=== PATIENT | female | born 1935 | race Caucasian/White ===

== ENCOUNTER 2022-05-26 13:49 | Observation (INO) | payer OTHER ==
--- OUTSIDE RECORDS SUMMARY | 2022-05-26 13:51 | XMS REPORT | Continuity of Care Document ---
:1935 Author Organization [facility] t Address [address] [place] [address] Care Team Providers Name Role Phone Provider, [facility] Attending Clinician Unavailable Michael Pickens Attending Clinician MICHAEL WILLIS Attending Clinician Unavailable Payers Payer Name Policy Type Policy Number Effective Date Expiration Date S ource Problems Condition Condition Condition Status Onset Resolution Last Treating Co mments Source Name Details Category Date Date Treatment Clinician Date No known No known Disease Unive rs active active ity of problems problems [facility] Allergies, Adverse Reactions, Alerts Allergy Allergy Status Severity Reaction(s) Onset Inactive Treating Comm ents Source Name Type Date Date Clinician SULFA Drug Active Unknown-Cmnt 2019-09 Univ ers (SULFONA Class 2-05 ity of MIDE 00:00: [place] ANTIBIOT 00 Medical ICS) Branch Sulfa Drug Active Unknown - 2019-09 Univers (Sulfona Allergy See comments 2-05 i ty of mide 00:00: [place] Antibiot 00 Medical ics) Branch Amoxicil Drug Active Rash 2018-09 Univers domenico Allergy 0-14 ity of 00:00: [place] [address] [facility] AMOXICIL DRUG Active Rash 2018-09 Univers DOMENICO INGREDI 0-14 ity of 00:00: [address] NO KNOWN Drug Active Univers ALLERGIE Class ity of S [facility] Social History Social Habit Start Date Stop Date Quantity Comments Source Sex Assigned At [facility] [place] Exposure to Not sure [facility] SARS-CoV-2 (event) Medica l Branch Tobacco use and 2020-08-16 2020-08-16 Never used [facility] exposure 00:00:00 00:00:[address] [facility] Smoking Status Start Date Stop Date Source Never smoker [facility] Medications Ordered Filled Start Stop Current Ordering Indication Dosage Frequency Signature Comments Components Source Medication Medication Date Date Medication? Clinician (SIG) Name Name CARVEDILOL 2019-09 Yes Take by Univ ers ORAL 2-05 mouth. ity of 14:53: [place] [address] [facility] methocarbam 2019-09 Yes [id number] 750mg Take 1 U nivers oL 750 mg 2-05 tablet by ity o f tablet 00:00: mouth 4 [place] 00 (four) Medical times [place] daily as needed for Pain (scale 1-3). oxybutynin 2019-09 Yes Univers 10 mg 24 hr 2- ity of tablet 00:00: [place] 00 [facility] Branch losartan 25 2019-0 Yes 25mg Take 25 mg Univers mg tablet 12-13 by mouth. ity o f 00:00: [place] [address] [facility] atorvastati 2018-09 2020- No 10mg Take 10 mg Univers n 10 mg 10-31 by mouth. ity of tablet 00:00: 05:59 [place] 00 :00 Medical [place] Vital Signs Vital Name Observation Time Observation Value Comments Source Systolic blood 2020-08-16 14:51:00 125 mm[Hg] Univer [facility]ity of [facility] Diastolic blood 2020-08-16 14:51:00 81 mm[Hg] Unive rsity [facility] Heart rate 2020-08-16 14:51:00 80 /min [facility] Body temperature 2020-08-16 14:51:[address] [facility] Respiratory rate 2020-08-16 14:51:00 16 /min [facility] Body height 2020-08-16 14:51:00 157.5 cm [facility] Body weight 2020-08-16 14:51:00 54.432 kg [facility] BMI 2020-08-16 14:51:00 21.95 kg/m2 [facility] Oxygen saturation in 2020-08-16 14:51:00 98 /min [facility] Arterial blood by [facility] Pulse oximetry Branch Systolic blood 2020-08-16 14:51:00 125 mm[Hg] Univer sity of [facility] Diastolic blood 2020-08-16 14:51:00 81 mm[Hg] Unive rsity [facility] Heart rate 2020-08-16 14:51:00 80 /min [facility] Body temperature 2020-08-16 14:51:[address] [facility] Respiratory rate 2020-08-16 14:51:00 16 /min [facility] Body height 2020-08-16 14:51:00 157.5 cm [facility] Body weight 2020-08-16 14:51:00 54.432 kg [facility] BMI 2020-08-16 14:51:00 21.95 kg/m2 [facility] Oxygen saturation in 2020-08-16 14:51:00 98 /min [facility] Arterial blood by [facility] Pulse oximetry Branch Procedures This patient has no known procedures. Encounters Start End Encounter Admission Attending Care Care Encounter Source Date/Time Date/Time Type Type Clinicians Facility Department ID 2020-08-16 2020-08-16 Urgent Provider, [facility] Urgent Care [facility] [id number] Univers 08:41:53 09:01:53 Care [facility] [id number] [facility] [id number] [place] as Professio [phone] N[place] dical [address] 2020-08-16 2020-08-16 Urgent Provider, [facility] [id number] 08:41:53 09:01:53 Care [facility] [id number] Care [place] [id number] Professio [phone] nal [facility] Office [address] 2020-08-16 2020-08-16 Outpatient R [facility] [id number] Univers 08:40:00 08:40:00 [facility] Results This patient has no known results.
--- NOTE | 2022-05-26 14:44 | RAD REPORT ---
EXAM DESCRIPTION: RAD - Chest Single View - 05/26/2022 2:37 pm CLINICAL HISTORY: CHEST PAIN COMPARISON: No comparisons FINDINGS: Lines: None. Lungs: No evidence of edema or pneumonia. Pleural: No significant pleural effusions or pneumothorax. Cardiac: The heart size is within normal limits. Mediastinum: Within normal limits. Bones: No acute fractures. Other: None IMPRESSION: No acute cardiopulmonary disease.
[2022-05-26 15:03] LABS: Absolute Lymphocytes (CBC) 1.3 K/uL (0.7-4.9); Hematocrit 35.2 % (36.0-45.0); Lymphocytes % 23.7 % (15.3-44.8); MCV 88.7 fL (80-100); MPV 6.9 fL (7.6-11.3); RBC Red Blood Cell Count 3.97 M/uL (3.86-4.86)
[2022-05-26 15:24] LABS: Potassium 3.6 mmol/L (3.5-5.1); Troponin High Sensitivity 6.3 pg/mL (<58.9)
[2022-05-26 15:50] LABS: SARS-CoV-2 Antigen Rapid Res Negative (Negative)
--- NOTE | 2022-05-26 16:23 | ER ---
Nurse's Notes [facility] Name: Nohemi Aviles Age: 87 yrs Sex: Female : 1935 Arrival Date: 05/26/2022 Time: 13:51 Bed 19 Private MD: Ike Mckeon Diagnosis: Chest pain, unspecified Presentation: 05/26 14:05 Chief complaint: Patient states: saw Dr. Valles today for stress test, had an abnormal tp1 ECG. Reports continuous chest pressure rated 3/10 that started over a week ago. When pain began PT stated chest pain was severe. reports nausea, vomiting, lightheadedness, headache. denies blurred vision. Dr. Valles instructed PT to be admitted for a heart cath tomorrow. Coronavirus screen: Vaccine status: Patient reports receiving the 2nd dose of the covid vaccine. Ebola Screen: Patient negative for fever greater than or equal to 101.5 degrees Fahrenheit, and additional compatible Ebola Virus Disease symptoms Patient denies exposure to infectious person. Patient denies travel to an Ebola-affected area in the 21 days before illness onset. Initial Sepsis Screen: Does the patient meet any 2 criteria? No. Patient's initial sepsis screen is negative. Does the patient have a suspected source of infection? No. Patient's initial sepsis screen is negative. Risk Assessment: Do you want to hurt yourself or someone else? Patient reports no desire to harm self or others. Onset of symptoms is unknown. 14:05 Method Of Arrival: Ambulatory tp1 14:05 Acuity: CHANTEL 3 tp1 Triage Assessment: 14:10 General: Appears in no apparent distress. comfortable, Behavior is calm, cooperative. tp1 Pain: Complains of pain in chest Pain radiates to back Pain currently is 3 out of 10 on a pain scale. Pain began about a week ago. Neuro: Nguyễn Agitation-Sedation Scale (RASS): 0 - Alert and Calm Level of Consciousness is awake, alert, obeys commands, Oriented to person, place, time, situation. Cardiovascular: Patient's skin is warm and dry. Historical: - Allergies: 14:10 Sulfa (Sulfonamide Antibiotics); tp1 14:10 Amoxicillin; tp1 - Home Meds: 14:15 atorvastatin oral [Active]; carvedilol oral [Active]; losartan oral [Active]; tp1 omeprazole Oral [Active]; Oxybutynin Chloride Oral [Active]; 14:17 estradiol vaginal tab [Active]; Vitamin D Oral [Active]; Vitamin K Sub-Q [Active]; tp1 Vitamin B-12 Oral [Active]; - PMHx: 14:10 Hypertensive disorder; Hypercholesterolemia; idiopathic cardiomyopathy; Diabetes tp1 mellitus; - PSHx: 14:10 Cholecystectomy; hysterectomy; tp1 - Immunization history:: Client reports receiving the 2nd dose of the Covid vaccine. - Social history:: Smoking status: Patient denies any tobacco usage or history of. Screenin:00 Abuse screen: Denies threats or abuse. Denies injuries from another. Nutritional jl7 screening: No deficits noted. Tuberculosis screening: No symptoms or risk factors identified. Fall Risk IV access (20 points). Total Toth Fall Scale indicates No Risk (0-24 pts). Assessment: 15:00 General: Appears in no apparent distress. uncomfortable, Behavior is calm, cooperative, jl7 appropriate for age. Pain: Denies pain. Neuro: Level of Consciousness is awake, alert, obeys commands, Oriented to person, place, time, situation. Cardiovascular: Denies chest pain, Patient's skin is warm and dry. Rhythm is sinus rhythm. Respiratory: Airway is patent Respiratory effort is even, unlabored, Respiratory pattern is regular, symmetrical, Denies shortness of breath. Derm: Skin is pink, warm \T\ dry. 16:00 Reassessment: Patient appears in no apparent distress at this time. No changes from jl7 previously documented assessment. Patient and/or family updated on plan of care and expected duration. Pain level reassessed. Patient is alert, oriented x 3, equal unlabored respirations, skin warm/dry/pink. 17:00 Reassessment: Patient appears in no apparent distress at this time. No changes from jl7 previously documented assessment. Patient and/or family updated on plan of care and expected duration. Pain level reassessed. Patient is alert, oriented x 3, equal unlabored respirations, skin warm/dry/pink. 18:00 Reassessment: Patient appears in no apparent distress at this time. No changes from jl7 previously documented assessment. Patient and/or family updated on plan of care and expected duration. Pain level reassessed. Patient is alert, oriented x 3, equal unlabored respirations, skin warm/dry/pink. Vital Signs: 14:05 BP 149 / 77; Pulse 84; Resp 16; Temp 97.7(TE); Pulse Ox 99% on R/A; Weight 58.06 kg; tp1 Height 5 ft. 1 in. (154.94 cm); 15:00 BP 123 / 75; Pulse 74; Resp 15; Pulse Ox 100% ; jl7 15:45 BP 132 / 73; Pulse 75; Resp 16; Pulse Ox 100% ; jl7 16:30 BP 132 / 73; Pulse 75; Resp 16; Pulse Ox 100% ; jl7 17:15 BP 116 / 86; Pulse 80; Resp 20; Pulse Ox 100% ; jl7 18:00 BP 112 / 86; Pulse 75; Resp 20; Pulse Ox 99% ; jl7 14:05 Body Mass Index 24.19 (58.06 kg, 154.94 cm) tp1 ED Course: 13:51 Patient arrived in ED. mr 13:51 Ike Mckeon DO is Private Physician. mr 14:10 Triage completed. tp1 14:10 Arm band placed on. tp1 14:14 Jes [facility]C [facility] kb 14:14 Adonay Myers MD is Attending Physician. kb 14:39 XRAY Chest (1 view) In Process Unspecified. EDMS 14:45 Inserted saline lock: 20 gauge in right antecubital area, using aseptic technique. kc6 Blood collected. 14:46 Basic Metabolic Panel Sent. kc6 14:46 CBC with Diff Sent. kc6 14:46 NT PRO-BNP Sent. kc6 14:46 PT-INR Sent. kc6 14:46 Troponin HS Sent. kc6 15:00 Patient has correct armband on for positive identification. Placed in gown. Bed in low jl7 position. Call light in reach. Side rails up X2. Client placed on continuous cardiac and pulse oximetry monitoring. NIBP monitoring applied. Warm blanket given. 15:00 Initial lab(s) drawn, by ED staff, sent to lab. EKG done, by ED staff, reviewed by kavita Myers MD. 15:11 SARS RAPID Sent. kc6 15:21 Alejo Hanna, LANCE is Primary Nurse. jl7 16:22 Prince Stephen MD is Hospitalizing Provider. kb 18:44 No provider procedures requiring assistance completed. Patient admitted, IV remains in jl7 place. intact, No redness/swelling at site. 23:15 Primary Nurse role handed off by Alejo Hanna RN 05/27 05:24 Livia Puri is Primary Nurse. tw5 Administered Medications: 05/26 21:40 Drug: Tylenol 500 mg Route: PO; tw5 Medication: 15:00 VIS not applicable for this client. 7 Outcome: 16:23 Decision to Hospitalize by Provider. kb 05/27 05:25 Admitted to ER Hold. Please see [facility] for further documentation. tw5 Condition: stable Instructed on the need for admit. 05:40 Patient left the ED. bb Signatures: Dispatcher [employer] EDMS Jes Nolan, ACETYLENE CUTTER-C ACETYLENE CUTTER-Lea Ortiz mr Amada Cotton, RN RN bb Alejo Hanna, RN RN Stephanie Du Livia Puri [facility] Livia Flores, RN RN tp1 Toshia Aguilar 6
--- NOTE | 2022-05-26 16:23 | EDPHYS ---
Physician Documentation [facility] [place] Name: Nohemi Aviles Age: 87 yrs Sex: Female : 1935 Arrival Date: 05/26/2022 Time: 13:51 Bed 19 Private MD: Ike Mckeon ED Physician Adonay Myers HPI: 05/26 19:46 This 87 yrs old Female presents to ER via Ambulatory with complaints of Abnormal EKG. kb 19:46 The patient or guardian reports chest pain that is located primarily in the substernal kb area. Onset: today. The pain does not radiate. Associated signs and symptoms: Pertinent positives: shortness of breath. The chest pain is described as a pressure. Duration: The patient or guardian reports a single episode, that is still ongoing, but improving. Modifying factors: The symptoms are alleviated by nothing. the symptoms are aggravated by activity. Severity of pain: At its worst the pain was moderate in the emergency department the pain has improved mildly. The patient has not experienced similar symptoms in the past. The patient has been recently seen by a physician:. Pt reports she had a stress test done by Dr Valles today that was abnormal. States she has had chest pain for a week which prompted her visit to [facility]. Was having chest pain and shortness of breath after stress test so was sent to ED for admission so [facility] could do a heart cath tomorrow. Pt reports pain has gotten better since it started . Historical: - Allergies: 14:10 Sulfa (Sulfonamide Antibiotics); tp1 14:10 Amoxicillin; tp1 - Home Meds: 14:15 atorvastatin oral [Active]; carvedilol oral [Active]; losartan oral [Active]; tp1 omeprazole Oral [Active]; Oxybutynin Chloride Oral [Active]; 14:17 estradiol vaginal tab [Active]; Vitamin D Oral [Active]; Vitamin K Sub-Q [Active]; tp1 Vitamin B-12 Oral [Active]; - PMHx: 14:10 Hypertensive disorder; Hypercholesterolemia; idiopathic cardiomyopathy; Diabetes tp1 mellitus; - PSHx: 14:10 Cholecystectomy; hysterectomy; tp1 - Immunization history:: Client reports receiving the 2nd dose of the Covid vaccine. - Social history:: Smoking status: Patient denies any tobacco usage or history of. ROS: 19:46 Constitutional: Negative for fever, chills, and weight loss. kb 19:46 Cardiovascular: Positive for chest pain. 19:46 Respiratory: Positive for shortness of breath. 19:46 All other systems are negative. Exam: 17:24 Constitutional: This is a well developed, well nourished patient who is awake, alert, kb and in no acute distress. Head/Face: Normocephalic, atraumatic. ENT: Moist Mucous membranes Chest/axilla: Normal chest wall appearance and motion. Cardiovascular: Regular rate and rhythm with a normal S1 and S2. No gallops, murmurs, or rubs. No pulse deficits. Respiratory: Respirations even and unlabored. No increased work of breathing. Talking in full sentences Abdomen/GI: Soft, non-tender. No distention Skin: Warm, dry with normal turgor. Normal color. MS/ Extremity: Pulses equal, no cyanosis. Neurovascular intact. Full, normal range of motion. Neuro: Awake and alert, GCS 15, oriented to person, place, time, and situation. Moves all extremities. Normal gait. Psych: Awake, alert, with orientation to person, place and time. Behavior, mood, and affect are within normal limits. 17:24 ECG was reviewed by the Attending Physician. Vital Signs: 14:05 BP 149 / 77; Pulse 84; Resp 16; Temp 97.7(TE); Pulse Ox 99% on R/A; Weight 58.06 kg; tp1 Height 5 ft. 1 in. (154.94 cm); 15:00 BP 123 / 75; Pulse 74; Resp 15; Pulse Ox 100% ; jl7 15:45 BP 132 / 73; Pulse 75; Resp 16; Pulse Ox 100% ; jl7 16:30 BP 132 / 73; Pulse 75; Resp 16; Pulse Ox 100% ; jl7 17:15 BP 116 / 86; Pulse 80; Resp 20; Pulse Ox 100% ; jl7 18:00 BP 112 / 86; Pulse 75; Resp 20; Pulse Ox 99% ; jl7 14:05 Body Mass Index 24.19 (58.06 kg, 154.94 cm) tp1 MDM: 14:21 Patient medically screened. kb 14:40 Physician consultation: Humza Valles MD was called at 14:30, regarding consult, kb patient's condition, awaiting callback. 16:20 Data reviewed: vital signs, nurses notes. Data interpreted: Pulse oximetry: on room air kb is 99 %. Interpretation: normal. Counseling: I had a detailed discussion with the patient and/or guardian regarding: the historical points, exam findings, and any diagnostic results supporting the discharge/admit diagnosis, lab results, radiology results, the need for further work-up and treatment in the hospital. Physician consultation: Humza Valles MD was contacted at 16:22, regarding consult, patient's condition. 16:22 Physician consultation: Prince Hailee MUJICA was contacted at 16:22, regarding admission, kb to the telemetry unit. patient's condition, and will see patient in ED. 05/26 14:15 Order name: Basic Metabolic Panel; Complete Time: 15:25 kb 05/26 14:15 Order name: CBC with Diff; Complete Time: 15:05 kb 05/26 14:15 Order name: NT PRO-BNP; Complete Time: 15:25 kb 05/26 14:15 Order name: PT-INR; Complete Time: 15:05 kb 05/26 14:15 Order name: Troponin HS; Complete Time: 15:25 kb 05/26 14:36 Order name: SARS RAPID; Complete Time: 16:00 kb 05/26 14:15 Order name: XRAY Chest (1 view); Complete Time: 14:46 kb 05/26 14:15 Order name: EKG; Complete Time: 14:15 kb 05/26 14:15 Order name: Cardiac monitoring; Complete Time: 15:11 kb 05/26 14:15 Order name: EKG - Nurse/Tech; Complete Time: 15:11 kb 05/26 22:44 Order name: Troponin High Sensitivity; Complete Time: 23:12 EDMS 05/26 22:44 Order name: Lipid Profile; Complete Time: 23:12 EDMS 05/26 22:52 Order name: Hemoglobin A1c; Complete Time: 23:12 EDMS 05/26 14:15 Order name: IV Saline Lock; Complete Time: 14:45 kb 05/26 14:15 Order name: Labs collected and sent; Complete Time: 14:46 kb 05/26 14:15 Order name: O2 Per Protocol; Complete Time: 14:46 kb 05/26 14:15 Order name: O2 Sat Monitoring; Complete Time: 14:46 kb EC:24 Rate is 66 beats/min. Rhythm is regular. QRS [place] is Normal. MO interval is normal at kb 154 msec. QRS interval is normal at 92 msec. QT interval is normal at 444 msec. Administered Medications: 21:40 Drug: Tylenol 500 mg Route: PO; tw5 Disposition: 05/27 20:33 Co-signature as Attending Physician, Adonay yMers MD. rn Disposition Summary: 05/26/22 16:23 Hospitalization Ordered Hospitalization Status: Inpatient Admission kb Provider: Prince jean Stephen Condition: Stable kb Problem: new kb Symptoms: are unchanged kb Bed/Room Type: Standard kb Location: Telemetry/MedSurg (Inpatient)(05/27/22 03:54) cg Room Assignment: [facility](05/27/22 03:54) Diagnosis - Chest pain, unspecified kb Forms: - Medication Reconciliation Form kb - SBAR form kb Signatures: Dispatcher [employer] EDMS Jes Nolan, ADRIA METAL MODEL MAKER-Adonay Montano MD MD rn Garcia, Cindy, RN RN cg Wood, Tiffany tw5 Livia Flores RN RN tp1 Corrections: (The following items were deleted from the chart) 05/26 19:19 16:23 Telemetry/MedSurg (Inpatient) kb 19:19 16:23 kb 05/27 03:54 05/26 19:19 [facility] ER HOLD cg 05/27 03:54 05/26 19:19 ERHOLD- cg cg
--- NOTE | 2022-05-26 17:06 | P.HP ---
Certification for Inpatient Patient admitted to: Observation With expected LOS: <2 Midnights Practitioner: I am a practitioner with admitting privileges, knowledge of patient current condition, hospital course, and medical plan of care. Services: Services provided to patient in accordance with Admission requirements found in Title 42 Section 412.3 of the Code of Federal Regulations Patient History Date of Service: 05/26/22 Reason for admission: abnormal stress test, chest pain History of Present Illness: 87-year-old female with a past medical history of hypertension, HLD, and type II diabetes mellitus. From cardiology office after an abnormal stress test this afternoon. The patient's has been having chest pain for the past week. First onset of chest pain started approximately 7 days ago when she woke up with the sharp chest pain radiating to the back. The pain was nonradiating and nonexertional. She actually got up to bed and vomited. She contacted her PCP and was able to be referred to a cardiology appointment today. She underwent a stress test, which was positive. Therefore, she is here to undergo coronary angiogram. Her first high-sensitivity troponin is negative. Her EKG is normal. Physical Examination - Physical Exam General: Alert, In no apparent distress, Cooperative HEENT: Atraumatic, Normocephalic Neck: Supple Respiratory: Clear to auscultation bilaterally, Normal air movement Cardiovascular: No edema, Normal pulses, Regular rate/rhythm, Normal S1 S2 Musculoskeletal: No clubbing, No swelling, No contractures Neurological: Normal speech, Sensation intact, Cranial nerves 3-12 intact - Studies Laboratory Data (last 24 hrs) 05/26/22 14:42: PT 11.0, INR 1.00 05/26/22 14:42: WBC 5.50, Hgb 12.0, Hct 35.2 L, Plt Count 285 05/26/22 14:42: Sodium 138, Potassium 3.6, BUN 17, Creatinine 1.00, Glucose 168 H Assessment and Plan - Problems (Diagnosis) (1) Abnormal stress test Current Visit: Yes Status: Acute (2) Chest pain Current Visit: Yes Status: Acute (3) Hypertension Current Visit: Yes Status: Acute (4) Hyperlipidemia Current Visit: Yes Status: Acute (5) Type 2 diabetes mellitus Current Visit: Yes Status: Acute - Plan Assessment Patient is a 87-year-old female who is presenting from her cardiol ogist office after an abnormal stress test. She has a history of hypertension, type 2 diabetes mellitus and hyperlipidemia. Her chest pain was resolved during my evaluation. She is hemodynamically stable. Work-up so far has included troponin and EKG all of which were negative. Abnormal stress test Hypertension Hyperlipidemia Type 2 diabetes mellitus Plan: Will admit under observation with telemetry Repeat troponin Follow-up with 2D echo, hemoglobin A1c and lipid panel Cardiology has been consulted for a coronary angiogram Should be n.p.o. after midnight No chemoprophylaxis as per cardiology Okay for SCDs Resume rest of her home medication when reconciled - Advance Directives Does patient have a Living Will: Yes Does patient have a Durable POA for Healthcare: Yes
[2022-05-26] MEDS ORDERED: FAMOTIDINE 20 MG TAB ONE (21:26)
[2022-05-26] MEDS ORDERED: HYDROMORPHONE HCL 2 MG/ML inj ONE (21:26)
[2022-05-26] MEDS ORDERED: PROMETHAZINE INJ 25 MG/ML AMP ONE (21:26)
[2022-05-26] MEDS ORDERED: ACETAMINOPHEN 325 MG TABLET PO PRN (21:32)
[2022-05-26] MEDS ORDERED: ACETAMINOPHEN 500 MG TAB ONE (21:49)
[2022-05-26 21:59] VITALS: BMI 24.1
[2022-05-26] MEDS ORDERED: carvediloL 12.5 MG TAB PO ONE (22:10)
[2022-05-26] MEDS ORDERED: carvediloL 6.25 MG TAB ONE (22:23)
[2022-05-26 22:44] LABS: Troponin High Sensitivity 7.8 pg/mL (<58.9)
[2022-05-27] MEDS ORDERED: PNEUMOCOCCAL VACCINE 0.5 ML IMVAC ONE (08:00)
[2022-05-27] MEDS ORDERED: NA CHLORIDE 0.9% 0 ML ONE (08:51)
[2022-05-27] MEDS ORDERED: HOME MED 1 EA UNK (Oxybutynin Chloride [Oxybutynin Chloride Er] 10 MG Tab.Er.24) PO SCH (09:00)
[2022-05-27] MEDS ORDERED: HOME MED 1 EA UNK (Omeprazole [Omeprazole] 20 MG Capsule.Dr) PO SCH (09:00)
[2022-05-27] MEDS ORDERED: LOSARTAN POTASSIUM 50 MG TABLET PO SCH (09:00)
[2022-05-27] MEDS ORDERED: PANTOPRAZOLE 40MG TABLET PO SCH (09:00)
[2022-05-27] MEDS ORDERED: carvediloL 12.5 MG TAB PO SCH (09:00)
[2022-05-27] MEDS ORDERED: OXYBUTYNIN CHLORIDE 5 MG TAB PO SCH (09:00)
[2022-05-27] MEDS ORDERED: HEPA 1000U/500MLS 2,000 UNIT/1,000 ML BAG IV ONE (09:33)
[2022-05-27] MEDS ORDERED: MIDAZOLAM HCL 2 MG/2 ML INJ ONE (09:34)
[2022-05-27] MEDS ORDERED: FENTANYL CITR 100 MCG/2 ML ONE (09:34)
[2022-05-27] MEDS ORDERED: NA CHLORIDE 0.9% 500 ML ONE (09:35)
[2022-05-27] MEDS ORDERED: NA CHLORIDE 0.9% 0 ML IV ONE (09:35)
[2022-05-27] MEDS ORDERED: ATROPINE SULF 1 MG/10 ML SYR IV ONE (09:35)
--- NOTE | 2022-05-27 10:33 | P.DS ---
Admission Date: 05/26/22 Discharge Date: 05/27/22 Disposition: ROUTINE DISCHARGE Discharge Condition: GOOD Reason for Admission: abnormal stress test, chest pain - Problems (1) Abnormal stress test Current Visit: Yes Status: Acute (2) Chest pain Current Visit: Yes Status: Acute (3) Hypertension Current Visit: Yes Status: Acute (4) Hyperlipidemia Current Visit: Yes Status: Acute (5) Type 2 diabetes mellitus Current Visit: Yes Status: Acute Brief History of Present Illness: 87-year-old female with a past medical history of hypertension, HLD, and type II diabetes mellitus. From cardiology office after an abnormal stress test this afternoon. The patient's has been having chest pain for the past week. First onset of chest pain started approximately 7 days ago when she woke up with the sharp chest pain radiating to the back. The pain was nonradiating and nonexertional. She actually got up to bed and vomited. She contacted her PCP and was able to be referred to a cardiology appointment today. She underwent a stress test, which was positive. Therefore, she is here to undergo coronary angiogram. Her first high-sensitivity troponin is negative. Her EKG is normal. Hospital Course: Meeting under observation. Her repeat troponin was negative as well. She had a coronary angiogram this morning after an abnormal stress test. No obstructive coronary disease was found. Patient has been cleared by cardiology for discharge. Vital Signs/Physical Exam: Temp Pulse Resp BP Pulse Ox 97.8 F 62 16 140/62 100 05/27/22 08:00 05/27/22 08:00 05/27/22 08:00 05/27/22 08:00 05/27/22 08:00 General: Alert, In no apparent distress, Cooperative HEENT: Atraumatic, Normocephalic Neck: Supple Respiratory: Clear to auscultation bilaterally, Normal air movement Cardiovascular: No edema, Normal pulses, Regular rate/rhythm, Normal S1 S2 Musculoskeletal: No clubbing, No swelling, No contractures, No erythema, No tenderness Neurological: Normal speech, Sensation intact, Cranial nerves 3-12 intact Laboratory Data at Discharge: WBC 5.50 K/uL (4.3-10.9) 05/26/22 14:42 Hgb 12.0 g/dL (12.0-15.0) 05/26/22 14:42 Hct 35.2 % (36.0-45.0) L 05/26/22 14:42 Plt Count 285 K/uL (152-406) 05/26/22 14:42 PT 11.0 SECONDS (9.5-12.5) 05/26/22 14:42 INR 1.00 05/26/22 14:42 Sodium 138 mmol/L (136-145) 05/26/22 14:42 Potassium 3.6 mmol/L (3.5-5.1) 05/26/22 14:42 BUN 17 mg/dL (7-18) 05/26/22 14:42 Creatinine 1.00 mg/dL (0.55-1.3) 05/26/22 14:42 Glucose 168 mg/dL (74-106) H 05/26/22 14:42 Triglycerides 183 mg/dL (<150) H 05/26/22 22:10 Cholesterol 148 mg/dL (<200) 05/26/22 22:10 HDL Cholesterol 45 mg/dL (40-60) 05/26/22 22:10 Cholesterol/HDL Ratio 3.29 05/26/22 22:10 Home Medications: RX: Atorvastatin Calcium [Lipitor*] 20 mg PO DAILY 05/26/22 RX: Carvedilol [Coreg] 12.5 mg PO BID 05/26/22 RX: Dulaglutide [Trulicity] 1.5 mg EVERY 7TH DAY 05/26/22 RX: Losartan Potassium 25 mg DAILY 05/26/22 RX: Omeprazole 20 mg DAILY 05/26/22 RX: Oxybutynin Chloride [Oxybutynin Chloride ER] 10 mg DAILY 05/26/22 Followup: Ike Mckeon DO [Primary Care Provider] -
--- NOTE | 2022-05-27 13:36 | EKG ---
Test Date: 2022-05-26 Test Time: 14:56:54 Director Critical Care: KIMBER MEASUREMENT RESULTS: Intervals: Rate: 66 KS: 154 QRSD: 92 QT: 424 QTc: 444 [place]: P: 45 KS: 154 QRS: -19 T: 19 INTERPRETIVE STATEMENTS: Normal sinus rhythm Normal ECG No previous ECG available for comparison Electronically Signed On 05-27-22 13:34:56 CDT by Bruce Nesbitt
[2022-05-27 15:49] VITALS: O2SAT 100
[2022-05-27 15:50] VITALS: BP 156/65; TEMP 97.5
[2022-05-27] MEDS ORDERED: ATORVASTATIN 20 MG TAB PO SCH (21:00)
--- NOTE | 2022-05-27 22:28 | OP ---
Date of Procedure: 05/27/2022 Surgeon: Humza Valles MD Aircraft Servicer: Ms. Tania Lopez. Indications: The patient was admitted to Dr. Stephen on 05/27/2022. Procedure In Detail: The patient was brought to the cardiac cath technician today because of unstable angina and po sitive stress test. In the cardiac cath technician, she was prepped and draped in routine sterile fashion. Given V ersed and fentanyl for sedation. She underwent left heart catheterization, selective coronary arteri ogram, and common femoral arteriogram. A 6-[place] sheath had been introduced in the right common fem oral artery successfully using the Seldinger technique and 10 cc of xylocaine. Angiography there was normal. Angio-Seal was used to close the case. A JL3.5 catheter was used to cannulate the left marilee n. She was found to have diffuse calcification by angiography with diffuse plaquing throughout the c ircumflex and LAD system, but no focal stenosis. A JR4 catheter was used to cannulate the right main . The RCA was normal. Large and dominant without any disease. Total conscious sedation was 30 daniel thomas. Complication: None. Blood Loss: 5 mL. Postoperative Diagnosis: Minimal coronary artery disease. Plan: Plan is for medical therapy. NU/PRABHU Voice ID: [id number] Report ID: [id number]
--- NOTE | 2022-05-30 19:24 | CON ---
Date of Consultation: 05/27/2022 Reason For Consultation: Abnormal stress test and chest pain. History Of Present Illness: Ms. Aviles was actually sent from my office on 05/26/2022 to the hospit ne because of persistent chest pain and abnormal stress test in the septal region. She was sent sarah zamorano for further evaluation, and they plan to have a left heart catheterization. Denied PND, orthopnea, pedal edema, palpitations, or syncope. Chest pain feels like pressure, has lasted for hours, denied any fever or chills. In the emergency room by the time she got there, she continued to have chest p ain. Allergies: HER ALLERGIES INCLUDE SULFA AND AMOXICILLIN. Review of Systems: Negative. Social History: Negative. Family History: Noncontributory. Medications: At home include Lipitor, omeprazole, and oxybutynin. Past Medical History: Includes diabetes, hypertension, hypercholesterolemia, and a history of idiopa thic cardiomyopathy. Physical Examination: Vital Signs: Her vital signs were stable. She was afebrile HEENT: Negative. Neck: Supple without any bruit, lymphadenopathy, JVD, or thyromegaly. Chest: Clear to auscultation and percussion. Cardiac: Revealed a regular rhythm and rate. No murmurs, gallops, or rubs. Abdomen: Benign. Extremities: Revealed no clubbing, cyanosis, or edema. Diagnostic Data: EKG was normal. Triglycerides 183. Hemoglobin A1c was 6.5, and glucose was 168. Chest x-ray and EKG unremarkable. Stress test positive. Impression And Plan: The patient with diabetes, hypertension, dyslipidemia, abnormal stress test, pe rsistent chest pain. We will plan for left heart catheterization to define her coronary anatomy. Madonna jaun agrees to proceed with the procedure. She understands the risk and the benefit. Continue present regimen. Hold Lovenox at least 8 hours prior to the catheterization. We will see what the catheteri zation shows before making further decision. NU/PRABHU Voice ID: [id number] Report ID: [id number]
== END 2022-05-27 14:18 | disposition home or self-care (01) ==
LOC: ER 13:49 → ERHOLD 16:26 → 4TH 05-27 05:38
PROVIDERS: ADMIT Internal Medicine; ATTEND Internal Medicine
DX: I25.110 Atherosclerotic heart disease of native coronary artery with unstable angina pectoris (principal); I10 Essential (primary) hypertension; E78.00 Pure hypercholesterolemia, unspecified; E11.9 Type 2 diabetes mellitus without complications; E78.2 Mixed hyperlipidemia; I42.9 Cardiomyopathy, unspecified; K21.9 Gastro-esophageal reflux disease without esophagitis; Z79.899 Other long term (current) drug therapy; Z88.0 Allergy status to penicillin; Z88.2 Allergy status to sulfonamides; Z90.49 Acquired absence of other specified parts of digestive tract; Z90.710 Acquired absence of both cervix and uterus; Z20.822 Contact with and (suspected) exposure to COVID-19
CPT/HCPCS: 93005; 85025; 80048; 36415; 85610; 80061; 83036; 84484 ×2; 83880; 71045; 93454; 99285; 87811; C1893; Q9966; C1760; G0269; J2550; J2250; J1170; J3010; G0378 ×4; J7040; J1644; J0583

== ENCOUNTER 2024-05-02 13:26 | Emergency (ER) | payer OTHER ==
--- OUTSIDE RECORDS SUMMARY | 2024-05-02 13:36 | XMS REPORT | Clinical Summary ---
Author Name Unknown Organization [facility] [place] Address [address] [place] [address] Care Team Providers Care Double Needle Operator Name Role Phone Ike Mckeon MD Unavailable [phone] Encounters Date Type Department Care Team Description 05/09/2023 Mobile Encounter [facility] - Hematology [address] [facility]th [place] [address] Luis Enrique Edge MD after 05/03/2023 Social History Tobacco Use Types Packs/Day Years Used Date Smoking Tobacco: Never Assessed Sex and Gender Information Value Date Recorded Sex Assigned at Not on file Gender Identity Not on file Sexual Orientation Not on file Job Start Date Occupation Industry Not on file Not on file Not on file Plan of Treatment Health Maintenance Due Date Last Done Comments Pneumococcal Vaccine: 65+ Years (1 of - PCV) 001 COVID-19 Vaccine (2022-24 season) 2023 Influenza Vaccine 05/13/2024 Care Teams Double Needle Operator Relationship Specialty Start Date End Date Ike Mckeon MD [address] [place] [address] [place] [address] PCP - External Primary Care Provider Nephrology 05/09/23
--- NOTE | 2024-05-02 14:33 | RAD REPORT ---
EXAM DESCRIPTION: CT - Head Brain Wo Cont - 05/02/2024 2:17 pm CLINICAL HISTORY: headach Headache, drowsiness COMPARISON: <Comparisons> TECHNIQUE: All CT scans are performed using dose optimization technique as appropriate and may inclu de automated exposure control or mA/KV adjustment according to patient size. FINDINGS: No intracranial hemorrhage, hydrocephalus or extra-axial fluid collection.Mild generalized brain atrophy seen.No areas of brain edema or evidence of midline shift. The paranasal sinuses and mastoids are clear. The calvarium is intact. IMPRESSION: No acute intracranial abnormality.
[2024-05-02 14:50] LABS: Absolute Eosinophils 0.1 K/uL (0-0.5); Absolute Lymphocytes (CBC) 1.4 K/uL (0.7-4.9); Absolute Monocytes 0.3 K/uL (0.1-1.3); Absolute Neutrophil 6.8 K/uL (1.8-8.0); Basophils % 0.4 % (0-1.3); Eosinophils % 1.1 % (0-4.4); Hematocrit 38.8 % (36.0-45.0); Hemoglobin 12.9 g/dL (12.0-15.0); Lymphocytes % 16.7 % (15.3-44.8); MCH 30.3 pg (27.0-35.0); MCHC 33.2 g/dL (32.0-36.0); MCV 91.1 fL (80-100); MPV 7.6 fL (7.6-11.3); Neutrophils % 78.8 % (41.7-73.7); Nucleated Red Blood Cells % 0.1 % (0-0); Platelets 245 thou/uL (152-406); RBC Red Blood Cell Count 4.26 M/uL (3.86-4.86); Red Cell Distribution Width 14.2 % (12.1-15.2)
[2024-05-02] MEDS ORDERED: DIPHENHYDRAMINE 50 MG/ML VIAL ONE (15:07)
[2024-05-02] MEDS ORDERED: NA CHLORIDE 0.9% 1,000 ML ONE (15:07)
[2024-05-02 15:09] LABS: ALT/SGPT 40 U/L (13-56); AST/SGOT 51 U/L (15-37); Albumin 3.3 g/dL (3.4-5.0); Albumin/Globulin Ratio 1.1 (1.1-1.8); Alkaline Phosphatase 54 U/L (45-117); Anion Gap 10.9 mEq/L (5.0-15.0); BUN Blood Urea Nitrogen 24 mg/dL (7-18); Bicarbonate 22 mEq/L (21-32); Bilirubin Total 0.4 mg/dL (0.2-1.0); Glomerular Filtration Rate 33 ml/min (=/>90); Glucose Level 186 mg/dL (74-106); Potassium 3.9 mEq/L (3.5-5.1); Protein, Total 6.3 g/dL (6.4-8.2); Sodium Level 139 mEq/L (136-145); Troponin High Sensitivity 9.2 pg/mL (<58.9)
[2024-05-02 15:13] LABS: Bilirubin Direct < 0.2 mg/dL (0-0.2); Bilirubin Indirect, Calculated 0.2 mg/dL (0.2-0.8)
--- NOTE | 2024-05-02 16:13 | ER ---
Nurse's Notes [facility] Name: Nohemi Aviles Age: 89 yrs Sex: Female : 1935 Arrival Date: 05/02/2024 Time: 13:26 Bed 11 Private MD: Diagnosis: Dehydration;Nausea with vomiting, unspecified Presentation: 05/02 13:54 Chief complaint: EMS states: toned out for syncopal episode. Patient was at [facility] and me1 had some blood drawn, was walking out and felt nauseated with abdominal cramping so she sat down, vomited and then she lost consciousness. No fall or injury. A\T\OX4 when EMS arrived. EMS started a 20g to right wrist. No meds given. Coronavirus screen: Vaccine status: Patient reports receiving the 2nd dose of the covid vaccine. Ebola Screen: No symptoms or risks identified at this time. Initial Sepsis Screen: Does the patient meet any 2 criteria? No. Patient's initial sepsis screen is negative. Does the patient have a suspected source of infection? No. Patient's initial sepsis screen is negative. Risk Assessment: Do you want to hurt yourself or someone else? Patient reports no desire to harm self or others. Onset of symptoms was May 02, 2024. 13:54 Method Of Arrival: EMS: [place] [id number] 13:54 Acuity: CHANTEL 2 me1 Triage Assessment: 13:58 General: Appears comfortable, well groomed, well developed, well nourished, Behavior is me1 calm, cooperative, appropriate for age, drowsy. Pain: Denies pain. EENT: No signs and/or symptoms were reported regarding the EENT system. Neuro: Level of Consciousness is awake, alert, obeys commands, Oriented to person, place, time, situation, Appropriate for age Reports headache patient has been seeing doctors for a persistent headache over the past few months. a syncopal episode. Cardiovascular: Patient's skin is warm and dry. Respiratory: Airway is patent Respiratory effort is even, unlabored, Respiratory pattern is regular, symmetrical. GI: Reports nausea. : No signs and/or symptoms were reported regarding the genitourinary system. Derm: Skin is intact, is healthy with good turgor, Skin is pink, warm \T\ dry. Musculoskeletal: No signs and/or symptoms reported regarding the musculoskeletal system. Historical: - Allergies: 13:58 Amoxicillin; me1 13:58 Sulfa (Sulfonamide Antibiotics); me1 - PMHx: 13:58 diabetes mellitus; Hypercholesterolemia; Hypertensive disorder; idiopathic me1 cardiomyopathy; - PSHx: 13:58 Cholecystectomy; hysterectomy; me1 - Immunization history:: Adult Immunizations up to date. - Infectious Disease History:: Denies. - Social history:: Smoking status: Patient denies any tobacco usage or history of. Screenin:54 [facility] ED Fall Risk Assessment (Adult) History of falling in the last 3 months, me1 including since admission No falls in past 3 months (0 pts) Confusion or Disorientation No (0 pts) Intoxicated or Sedated No (0 pts) Impaired Gait No (0 pts) Mobility Assist Device Used No (0 pt) Altered Elimination No (0 pt) Score/Fall Risk Level 0 - 2 = Low Risk Maintained a safe environment, Provided non-skid footwear, Hourly rounding (assess needs \T\ fall precautionary measures) done. Abuse screen: Denies threats or abuse. Nutritional screening: No deficits noted. Tuberculosis screening: No symptoms or risk factors identified. Assessment: 13:54 General: See triage assessment.. me1 Vital Signs: 13:54 BP 118 / 69; Pulse 58; Resp 16; Temp 98.6; Pulse Ox 99% ; Weight 58.97 kg; Height 5 ft. me1 1 in. ; Pain 0/10; 14:30 BP 114 / 62; Pulse 69; Resp 15; Pulse Ox 99% on R/A; me1 15:30 BP 122 / 53; Pulse 71; Resp 16; Pulse Ox 98% on R/A; me1 16:20 BP 123 / 56; Pulse 72; Resp 16; Pulse Ox 98% on R/A; me1 16:41 BP 111 / 59; Pulse 66; Resp 15; Temp 98.4; Pulse Ox 100% on R/A; me1 13:54 Body Mass Index 24.56 (58.97 kg, 154.94 cm) me1 13:54 Pain Scale: Adult me1 ED Course: 13:41 Patient arrived in ED. ap3 13:50 William Jordan MD is Attending Physician. ec2 13:54 Shae Powell RN is Primary Nurse. me1 13:54 Patient has correct armband on for positive identification. Bed in low position. Call me1 light in reach. Side rails up X2. Provided Education on: POC. Verbalized understanding. . Client placed on continuous cardiac and pulse oximetry monitoring. NIBP monitoring applied. ekg monitor on. Pulse ox on. NIBP on. 13:54 No provider procedures requiring assistance completed. me1 13:58 Triage completed. me1 13:58 Arm band placed on Patient placed in an exam room. me1 14:19 CT Head Brain wo Cont In Process Unspecified. EDMS 14:37 Maintain EMS IV. Dressing intact. Good blood return noted. Site clean \T\ dry. Gauge \T\ me 1 site: 20g R wrist. Flushed with 10 mL NS. 14:38 Initial lab(s) drawn, by me, sent to lab. me1 14:38 Basic Metabolic Panel Sent. me1 14:38 CBC with Diff Sent. me1 14:38 Troponin HS Sent. me1 14:38 LFT's Sent. me1 16:41 IV discontinued, intact, bleeding controlled, No redness/swelling at site. Pressure me1 dressing applied. Administered Medications: 15:14 Drug: NS 0.9% IV 1000 ml IV at 1 bolus Per protocol; 1000 mL bolus Route: IV; Rate: 1 me1 bolus; Site: right wrist; 16:22 Follow up: Response: No adverse reaction; IV Status: Completed infusion; IV Intake: me1 1000ml 15:14 Drug: Droperidol IVP 1.25 mg IVP once Route: IVP; Site: right wrist; me1 16:23 Follow up: Response: No adverse reaction; Nausea is decreased me1 15:25 Not Given (Patient Refused): vngcfldghjrmcka20.5 mg IVP once me1 Medication: 13:54 VIS not applicable for this client. me1 Intake: 16:22 IV: 1000ml; Total: 1000ml. me1 Outcome: 16:13 Discharge ordered by . ec2 16:41 Discharged to home via wheelchair, with family, me1 16:41 Condition: stable 16:41 Discharge instructions given to patient, family, Instructed on discharge instructions, follow up and referral plans. medication usage, Demonstrated understanding of instructions, follow-up care, medications, Prescriptions given X 1, 16:41 Patient left the ED. me1 Signatures: Dispatcher [employer] Angelina Kelley RN RN ap3 Shae Powell RN RN me1 William Jordan MD MD ec2
--- NOTE | 2024-05-02 16:13 | EDPHYS ---
Physician Documentation [facility] Name: Nohemi Aviles Age: 89 yrs Sex: Female : 1935 Arrival Date: 05/02/2024 Time: 13:26 Bed 11 Private MD: ED Physician William Jordan HPI: 05/02 14:12 This 89 yrs old Female presents to ER via EMS with complaints of n/v syncope. ec2 14:12 Patient arrives today for evaluation of a syncopal episode. Patient reportedly was ec2 having blood drawn, subsequently came nauseous and had a syncopal episode. Patient is been having issues with headaches for the past several months and has been seeing neurology. Patient also reports of a headache. Poor hydration status. Otherwise no chest pain or difficulty breathing.. Historical: - Allergies: 13:58 Amoxicillin; me1 13:58 Sulfa (Sulfonamide Antibiotics); me1 - PMHx: 13:58 diabetes mellitus; Hypercholesterolemia; Hypertensive disorder; idiopathic me1 cardiomyopathy; - PSHx: 13:58 Cholecystectomy; hysterectomy; me1 - Immunization history:: Adult Immunizations up to date. - Infectious Disease History:: Denies. - Social history:: Smoking status: Patient denies any tobacco usage or history of. ROS: 14:12 Constitutional: as per hpi ec2 Exam: 14:12 Constitutional: GEN: NAD Head: atraumatic Eyes: EOMI Ears: External ears are ec2 normal. CV: regular rate LUNGS: no respiratory distress ABD: non-distended SKIN: no evidence of rashes MSK: no evidence of trauma. Neuro: Cranial nerves II through XII intact, strength intact all extremities Vital Signs: 13:54 BP 118 / 69; Pulse 58; Resp 16; Temp 98.6; Pulse Ox 99% ; Weight 58.97 kg; Height 5 ft. me1 1 in. ; Pain 0/10; 14:30 BP 114 / 62; Pulse 69; Resp 15; Pulse Ox 99% on R/A; me1 15:30 BP 122 / 53; Pulse 71; Resp 16; Pulse Ox 98% on R/A; me1 16:20 BP 123 / 56; Pulse 72; Resp 16; Pulse Ox 98% on R/A; me1 16:41 BP 111 / 59; Pulse 66; Resp 15; Temp 98.4; Pulse Ox 100% on R/A; me1 13:54 Body Mass Index 24.56 (58.97 kg, 154.94 cm) me1 13:54 Pain Scale: Adult me1 MDM: 14:04 Patient medically screened. ec2 14:12 Data reviewed: vital signs. ED course: Patient arrives today for evaluation of ec2 headache, nausea, vomiting, syncope. Examination remarkable for neuro intact individuals otherwise in no acute distress. Will obtain lab work, EKG, CT scan of the head. Differential includes anemia, dehydration, arrhythmia, electrolyte disturbances.. 15:37 ED course: Metabolic profile shows renal dysfunction with creatinine 1.5, GFR 33, CBC ec2 reassuring, LFTs are unremarkable, troponin is within normal ranges. On reassessment patient is well-appearing in no acute distress. Will discharge home and have the patient follow-up outpatient with neurology for her chronic headaches. Return precautions given.. 05/02 14:05 Order name: Basic Metabolic Panel; Complete Time: 15:37 ec2 05/02 14:05 Order name: CBC with Diff; Complete Time: 15:37 ec2 05/02 14:05 Order name: Troponin HS; Complete Time: 15:37 ec2 05/02 14:05 Order name: LFT's; Complete Time: 15:37 ec2 05/02 14:05 Order name: CT Head Brain wo Cont; Complete Time: 14:34 ec2 05/02 14:05 Order name: EKG; Complete Time: 14:05 ec2 05/02 14:05 Order name: Cardiac monitoring; Complete Time: 14:38 ec2 05/02 14:05 Order name: EKG - Nurse/Tech; Complete Time: 16:42 ec2 05/02 14:05 Order name: IV Saline Lock; Complete Time: 14:38 ec2 05/02 14:05 Order name: Labs collected and sent; Complete Time: 14:38 ec2 05/02 14:05 Order name: O2 Per Protocol; Complete Time: 14:38 ec2 05/02 14:05 Order name: O2 Sat Monitoring; Complete Time: 14:38 ec2 Administered Medications: 15:14 Drug: NS 0.9% IV 1000 ml IV at 1 bolus Per protocol; 1000 mL bolus Route: IV; Rate: 1 me1 bolus; Site: right wrist; 16:22 Follow up: Response: No adverse reaction; IV Status: Completed infusion; IV Intake: me1 1000ml 15:14 Drug: Droperidol IVP 1.25 mg IVP once Route: IVP; Site: right wrist; me1 16:23 Follow up: Response: No adverse reaction; Nausea is decreased me1 15:25 Not Given (Patient Refused): aaebtpednzayftk24.5 mg IVP once me1 Disposition Summary: 05/02/24 16:13 Discharge Ordered Notes: Location: Home ec2 Condition: Stable ec2 Diagnosis - Dehydration ec2 - Nausea with vomiting, unspecified ec2 Followup: ec2 - With: Private Physician - When: - Reason: Re-evaluation by your physician Discharge Instructions: - Discharge Summary Sheet ec2 - Dehydration, Adult ec2 Forms: - Medication Reconciliation Form ec2 - Antibiotic Education ec2 - Prescription Opioid Use ec2 - Patient Portal Instructions ec2 - Leadership Thank You Letter ec2 Prescriptions: - Zofran 4 mg Oral Tablet - take 1 tablet ORAL route every 12 hours As needed; 20 tablet; Refills: 0, ec2 Product Selection Permitted Signatures: Dispatcher [employer] Shae Koo RN RN me1 William Jordan MD MD ec2
[2024-05-02 16:55] VITALS: BP 111/59; TEMP 98.4; O2SAT 100
== END 2024-05-02 16:41 | disposition home or self-care (01) ==
LOC: ER 13:26
DX: E86.0 Dehydration (principal); E11.9 Type 2 diabetes mellitus without complications; I10 Essential (primary) hypertension
CPT/HCPCS: 85025; 80048; 36415; 80076; 84484; 70450; J7030; J1200